=== PATIENT | female | born 2000 | race Caucasian/White ===

== ENCOUNTER → 2022-03-13 09:17 | Outpatient (BNVA) | payer OTHER, SELFPAY | PROVIDERS: Visit Provider Nurse Practitioner Family | DX: G43.009 Migraine without aura, not intractable, without status migrainosus (principal); G24.3 Spasmodic torticollis | CPT/HCPCS: 99212 ==

== ENCOUNTER → 2022-06-12 10:50 | Outpatient (BNVA) | payer OTHER, SELFPAY | PROVIDERS: Visit Provider Nurse Practitioner Family | DX: G43.829 Menstrual migraine, not intractable, without status migrainosus (principal); G24.3 Spasmodic torticollis | CPT/HCPCS: 99212 ==

== ENCOUNTER → 2022-08-27 09:46 | Outpatient (BNVA) | payer OTHER, SELFPAY | PROVIDERS: Visit Provider Nurse Practitioner Family | DX: G43.009 Migraine without aura, not intractable, without status migrainosus (principal); G43.829 Menstrual migraine, not intractable, without status migrainosus; G24.3 Spasmodic torticollis; G47.8 Other sleep disorders | CPT/HCPCS: 99212 ==

== ENCOUNTER 2023-03-02 14:46 | Outpatient (AMB) | payer BC, SELFPAY ==
[2023-03-02 14:48] VITALS: BP 126/84; PULSE 92; O2SAT 98; BMI 23.4
--- NOTE | 2023-03-02 14:48 | MHC.OFFVIS ---
Intake Vital Signs 03/02/23 14:48 Height 5 ft 3 in Weight 132 lb 6 oz BMI 23.4 BP 126/84 Blood Pressure Location Lt brachial Position Sitting Pulse 92 Pulse Source Pulse Oximeter Pulse Oximetry (%) 98 Oxygen Delivery Method Room Air Intake Visit Reasons: 6m f/u headache - unable to confirm Intake Note: Pt presents to the office today for a 6 month follow up for headaches. Pt states her headaches were worse during her 2 week of having COVID and states the sumatriptan didnt help with that while she had covid. She states she believes her headaches are worse leading up to her menstrual cycle and during her cycle. Allergies Penicillins Allergy (Mild, Verified 03/02/23 14:51) Hives Medication List - Last Reconciled 03/02/23 by ALBERTO Morin levonorgestrel-ethinyl estrad 0.1-20 mg-mcg 1 tab PO DAILY onabotulinumtoxinA (Botox) 100 units IM ONCE 12 weeks propranolol 20 mg (2 x 10 mg) PO BID 30 days sumatriptan succinate take 1 tab at onset of headache; if no relief, may repeat 1 tab after at least 2 hrs; max = 2 tabs/24 hrs orally PRN; 30 days HPI HPI Comments History of Present Illness Details 22-yr-old female presents for f/u visit. Pt reports she had Covid-19 infection approx 2 weeks ago. She had prolonged headache, body aches, cough- did not require hospitalization, but felt quite sick. 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 Prior to the Covid infection- she was having 3-4 migraine days per week, which have increased some since. She notes that her initial migraine s/s has changed some from a throbbing posterior neck pain but now a more creep of pain in the cfr-ysxrrymmx-wzzqynja area which makes it more difficult to tell if she is going to have a mild or more severe migraine. She is trying to adjust to her new 4am shift work. However on her days off- she can be prone to oversleep, which can trigger a migraine. Denies constipation but has leg cramps. She wonders if she has vertigo. She can sometimes feel some episodes of turning her head quickly triggering- has a brief sensation of forward/backward motion; if stopped in a car on a hill- will feel like the car is moving back and forth; and once was looking out from a mountain top and felt like her vision was zooming in and out. She denies usual diplopia. With a migraine vision may come in and out. She can have orthostatic lightheadedness w/wo a migraine. She has never had a vestibular eval Her mother has a h/o migraine. PFSH Medical History Depression Syncope Surgical History Hx of wisdom tooth extraction Family History Mother Thyroid disease Social History Household Members: Family Alcohol intake: current Alcohol intake frequency: a few times a month Patient Tobacco Use Status: Never used Tobacco e-Cigarette/Vaping Use: Former Use Current occupational status: employed Review of Systems Const All systems reviewed & are unremarkable except as noted in HPI and below Physical Exam Vital Signs: Last Vital Signs Pulse 92 03/02/23 14:48 BP 126/84 03/02/23 14:48 Pulse Ox 98 03/02/23 14:48 Oxygen Delivery Method Room Air 03/02/23 14:48 BMI result Body Mass Index 23.4 Const General: cooperative and no acute distress Orientation/consciousness: patient oriented x3 HEENT Head: Yes normocephalic Resp Effort & Inspection: normal respiratory effort and able to speak in complete sentences Neuro General: patient oriented x3, gait normal and CN's II-XI intact bilaterally Cognition (Neuro): normal cognition Motor exam (neuro): 5/5 motor strength present throughout Psych Appearance: grossly normal Mental Status: mental status grossly normal Speech and movement: Normal speech and movement present Affect: normal affect Attitude: cooperative Thought process: Normal thought process present Thought content: Normal thought content present Insight: Good insight present (Psych) Judgement: Good judgement present (Psych) Assessment & Plan Assessment & Plan (1) Migraine without aura: Code(s): G43.009 - Migraine without aura, not intractable, without status migrainosus (2) Menstrual migraine: Code(s): G43.829 - Menstrual migraine, not intractable, without status migrainosus (3) Cervical dystonia: Code(s): G24.3 - Spasmodic torticollis Plan For shift work, sleep difficulties, h/o sleep paralysis: Stressed importance of good sleep hygiene. Pt may benefit from reviewing shift work sleep strategies and tips- online resources shared w/ pt. ? For acute migraine treatment: Continue Sumatriptan 50-100mg prn at onset of migraine. Ubrlevy 100mg samples- were effective. ? For migraine prevention: Start Emgality 240mg swc x's 1 then 120mg sc q month. Continue Propranolol to 20mg po bid- would not increase furtehr d/t dizziness s/s. Pt previously tried Magnesium - not helpful, Riboflavin- not helpful, Amitriptyline which did not help and caused mild mood changes.?? Future considerations: Increase Propranolol to 60mg QHS For dizziness- Monitor response to optimizing migraine preventive regimen. If continues to worsens, consider vestibular PT referral. ? For menstrual migraine: Sumatriptan bid- start 1 day prior to onset of menses, may continue x's 3-4 days. ? For cervical dystonia: Botox was approved, however pt has decided not to resume at this time. Monitor clinically. ? f/u in 4 months or sooner prn Medications: New galcanezumab-gnlm (Emgality Pen) 120 mg subcut ONCE 30 days 1 mL 6RF Coding Level of Care Code Est Pt Level 4 (50184) Diagnoses Migraine without aura G43.009 Menstrual migraine G43.829 Cervical dystonia G24.3
== END 2023-03-02 16:10 | disposition home or self-care (01) ==
PROVIDERS: Visit Provider Nurse Practitioner Family
DX: G43.009 Migraine without aura, not intractable, without status migrainosus (principal); G43.829 Menstrual migraine, not intractable, without status migrainosus; G24.3 Spasmodic torticollis
CPT/HCPCS: 99214

== ENCOUNTER → 2023-03-02 14:46 | Outpatient (BNVA) | payer BC, SELFPAY | PROVIDERS: Visit Provider Nurse Practitioner Family ==

== ENCOUNTER 2023-06-04 14:50 | Outpatient (AMB) | payer OTHER, BC, SELFPAY ==
[2023-06-04 14:52] VITALS: BP 126/80; PULSE 100; O2SAT 99; BMI 23.3
--- NOTE | 2023-06-04 14:52 | MHC.OFFVIS ---
Intake Vital Signs 06/04/23 14:52 Height 5 ft 3 in Weight 131 lb 8 oz BMI 23.3 BP 126/80 Blood Pressure Location Rt brachial Position Sitting Pulse 100 Pulse Source Palpation Pulse Oximetry (%) 99 Oxygen Delivery Method Room Air Intake Visit Reasons: 4 mo f/u Headaches-LVM Intake Note: Patient presents for 4 month headaches Information Interpreted: non-clinical & clinical Accompanied by: Self / Same As Patient Allergies Penicillins Allergy (Mild, Verified 06/04/23 14:59) Hives Medication List - Last Reconciled 06/04/23 by ALBERTO Morin levonorgestrel-ethinyl estrad 0.1-20 mg-mcg 1 tab PO DAILY sumatriptan succinate take 1 tab at onset of headache; if no relief, may repeat 1 tab after at least 2 hrs; max = 2 tabs/24 hrs orally PRN; 30 days HPI HPI Comments History of Present Illness Details 23-yr-old female presents for f/u visit. Pt denies any significant interval medical changes. 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 Goes to school on her scheduled days off. She feels her migraine burden is increased d/t continuing to work shift and has recently changed her OCP- which has caused her to have her menses for the last 2 months- this should subside once she adjusts to it. She is now having 3 migraine days per week, an attack may linger for a day or two. Noting lingering migraine more in her right occipital region. Headache and neck stiffness can still be there. She stopped propranolol, it was not very helpful. She did not start Emgality- due to co-pay cost. [facility] Medical History Depression Syncope Surgical History Hx of wisdom tooth extraction Family History Mother Thyroid disease Social History Household Members: Family Alcohol intake: current Alcohol intake frequency: a few times a month Patient Tobacco Use Status: Never used Tobacco e-Cigarette/Vaping Use: Former Use Current occupational status: employed Physical Exam Vital Signs: Last Vital Signs Pulse 100 06/04/23 14:52 BP 126/80 06/04/23 14:52 Pulse Ox 99 06/04/23 14:52 Oxygen Delivery Method Room Air 06/04/23 14:52 BMI result Body Mass Index 23.3 Const General: cooperative and no acute distress Orientation/consciousness: patient oriented x3 Resp Effort & Inspection: normal respiratory effort and able to speak in complete sentences Neuro General: patient oriented x3 Cranial nerves: Yes CN's II-XII intact bilaterally Cognition (Neuro): normal cognition Psych Appearance: grossly normal Mental Status: mental status grossly normal Speech and movement: Normal speech and movement present Affect: normal affect Attitude: cooperative Assessment & Plan Assessment & Plan (1) Migraine without aura: Code(s): G43.009 - Migraine without aura, not intractable, without status migrainosus (2) Menstrual migraine: Code(s): G43.829 - Menstrual migraine, not intractable, without status migrainosus (3) Cervical dystonia: 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 Pt may benefit from reviewing shift work sleep strategies and tips- online resources shared w/ pt. ? For acute migraine treatment: Continue Sumatriptan 50-100mg prn at onset of migraine. Ubrlevy 100mg samples- were effective. ? For migraine prevention: Again start Emgality 240mg swc x's 1 then 120mg sc q month- will try sending to alternate pharmacy and c0-pay assistance info shared w/ pt. Pt stopped Propranolol to 20mg po bid- not effective. Pt previously tried Magnesium - not helpful, Riboflavin- not helpful, Amitriptyline which did not help and caused mild mood changes.?? Future considerations: Increase Propranolol to 60mg QHS ? For dizziness- Monitor response to optimizing migraine preventive regimen. If continues to worsens, consider vestibular PT referral. ? For menstrual migraine: Sumatriptan bid- start 1 day prior to onset of menses, may continue x's 3-4 days. ? For cervical dystonia: Botox was approved, however pt decided not to resume at this time. Monitor clinically. ? f/u in 4 months or sooner prn Medications: New galcanezumab-gnlm (Emgality Pen) 120 mg subcut ONCE 30 days 2 mL 0RF Refilled sumatriptan succinate take 1 tab at onset of headache; if no relief, may repeat 1 tab after at least 2 hrs; max = 2 tabs/24 hrs orally PRN; 30 days 12 tabs 6RF migraine headache Coding Level of Care Code Est Pt Level 4 (57416) Diagnoses Migraine without aura G43.009 Menstrual migraine G43.829 Cervical dystonia G24.3
== END 2023-06-04 15:52 | disposition home or self-care (01) ==
PROVIDERS: Visit Provider Nurse Practitioner Family
DX: G43.009 Migraine without aura, not intractable, without status migrainosus (principal); G43.829 Menstrual migraine, not intractable, without status migrainosus; G24.3 Spasmodic torticollis
CPT/HCPCS: 99214

== ENCOUNTER → 2023-06-04 14:50 | Outpatient (BNVA) | payer BC, SELFPAY | PROVIDERS: Visit Provider Nurse Practitioner Family ==

== ENCOUNTER → 2023-07-05 09:57 | Outpatient (BNVA) | payer BC, OTHER, SELFPAY | PROVIDERS: Visit Provider Nurse Practitioner Family ==

== ENCOUNTER 2024-05-17 10:10 | Outpatient (AMB) | payer BC, OTHER, SELFPAY ==
[2024-05-17 10:20] VITALS: BP 130/80; PULSE 80; O2SAT 98; BMI 23.2
--- NOTE | 2024-05-17 10:20 | MHC.OFFVIS ---
Vital Signs 05/17/24 10:20 Height 5 ft 3 in Weight 131 lb BMI 23.2 BP 130/80 Blood Pressure Location Rt brachial Position Sitting Pulse 80 Pulse Source Pulse Oximeter Pulse Oximetry (%) 98 Intake Visit Reasons: Follow Up Intake Note: Patient presents follow up migraine medication [employer] Medic Required: No Accompanied by: Self / Same As Patient Allergies Penicillins Allergy (Mild, Verified 05/17/24 10:22) Hives Medication List - Last Reconciled 05/17/24 by ALBERTO Morin atogepant (Qulipta) 60 mg PO DAILY 30 days levonorgestrel-ethinyl estrad 0.1-20 mg-mcg 1 tab PO DAILY sumatriptan succinate take 1 tab at onset of headache; if no relief, may repeat 1 tab after at least 2 hrs; max = 2 tabs/24 hrs orally PRN; 30 days HPI Comments Details: History of Present Illness The patient is a 24-year-old female presenting with persistent headaches. Migraines are aggravated during her menstrual cycle, lasting five to six days per month, with additional significant weekly occurrences of migraine attacks. She attempted prophylactic injection, Emgality, but discontinued due to pain. Cervical dystonia previously managed with injections. Menstruation is accompanied by leg cramps radiating to the legs, severe on days two and three of her cycle, with back and hip pain. Sumatriptan provides acute relief for migraines. Headache location: throbbing cervical/occipital Headache Frequency: 5-6 days during menstrual cycle and then weekly Headache Duration: 5 to 6 days during menstrual cycle Headache severity: mild-moderate of severe Headache prodrome symptoms: unspecified Headache Aura: No aura Associated headache symptoms: tension in neck, photophobia, nausea, activity intolerance Headache postdrome symptoms: unspecified Headache alleviating factors: sumatriptan Headache aggravating factors: menstrual cycle Review of Systems - Neurological: Reports increased migraines during menstrual cycle. - Musculoskeletal: Reports leg cramps during the menstrual cycle. - Gastrointestinal: Denies constipation. Headache Lifestyle Factors - Discussed changing control to regulate menstrual cycle. - Exploring dietary triggers and methods to modulate estrogen levels, such as edamame consumption during the cycle. 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 - Experiences limitation in physical activity during migraines due to light sensitivity and pain. Employment - Works at [employer] in a physically demanding [employer] stocking role. - Holds an FMLA due to migraine impeding ability to perform duties during episodes. [facility] Medical History Depression Syncope Surgical History Hx of wisdom tooth extraction Family History Mother Thyroid disease Social History Household Members: Family Alcohol intake: current Alcohol intake frequency: a few times a month Patient Tobacco Use Status: Never used Tobacco e-Cigarette/Vaping Use: Former Use Current occupational status: employed Physical Exam Vital Signs: Last Vital Signs Pulse 80 05/17/24 10:20 BP 130/80 05/17/24 10:20 Pulse Ox 98 05/17/24 10:20 BMI result Body Mass Index 23.2 Const General: cooperative and no acute distress Orientation/consciousness: patient oriented x3 Resp Effort & Inspection: normal respiratory effort and able to speak in complete sentences Neuro General: patient oriented x3 Cranial nerves: Yes CN's II-XII intact bilaterally Cognition (Neuro): normal cognition Psych Appearance: grossly normal Mental Status: mental status grossly normal Speech and movement: Normal speech and movement present Affect: normal affect Attitude: cooperative Assessment & Plan Assessment & Plan (1) Migraine without aura: Code(s): G43.009 - Migraine without aura, not intractable, without status migrainosus Category: Medical (2) Menstrual migraine: Code(s): G43.829 - Menstrual migraine, not intractable, without status migrainosus Category: Medical (3) Cervical dystonia: 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 patient would prefer to pursue a non injection formulation at this point owing to anxiety provoked by previous Emgality injection. thus, we will initiate an order for Qulipta 60 mg daily at bedtime. To mitigate menstrual-related headaches, adjustments to control were recommended, potentially involving consultation with a drop hammer pile driver operator. I advised the inclusion of dietary soy products, like eating 1 cup of edamame daily during the menstrual cycle to counteract estrogen fluctuations. could also consider taking oral iron supplement during menstrual cycle to offset risk for iron deficiency induced migraine attacks. We discussed sumatriptan's continued use for acute relief. Patient was informed and verbally consented to the use of an ambient scribe for clinic note documentation during this visit. Patient Instructions For acute migraine treatment: Continue Sumatriptan 50-100mg prn at onset of migraine. Ubrlevy 100mg samples- were effective. ? For migraine prevention: Discontinue Emgality order- patient did not tolerate, due to injection site pain Start Atogepant (Qulipta) 60mg daily at bedtime. Potential side effects include but are not limited to drowsiness, nausea, constipation, weight loss. Pt previously tried Magnesium - not helpful, Riboflavin- not helpful, Amitriptyline which did not help and caused mild mood changes.??Emgality-not tolerated due to injection site pain. Propranolol 20 mg b.i.d. ineffective after several months. For menstrual migraine: Sumatriptan bid- start 1 day prior to onset of menses, may continue x's 3-4 days. - Consume edamame 1 cup daily during the menstrual cycle. - Aim to increase oral iron intake, especially during the menstrual cycle. - follow-up with drop hammer pile driver operator for control discussion. For dizziness- Monitor response to optimizing migraine preventive regimen. If worsens, consider vestibular PT referral. ? For cervical dystonia: Botox was approved, however pt decided not to resume at this time. Monitor clinically. ? f/u in 6 months or sooner prn Medications: New atogepant (Qulipta) 60 mg PO DAILY 30 days 30 tabs 6RF Discontinued galcanezumab-gnlm (Emgality Pen) Discontinued Reason: Doctor's Order 120 mg subcut ONCE 30 days 2 mL 0RF Scribe Plan - Not visible on output: Reviewed possible medication side effects, including but not limited to drowsiness, dizziness. Coding Level of Care Code Est Pt Level 4 (25349) Diagnoses Migraine without aura G43.009 Menstrual migraine G43.829 Cervical dystonia G24.3
--- OUTSIDE RECORDS SUMMARY | 2024-05-17 11:59 | XMS_ITS | Clinical Summary ---
Author Organization [facility] [address] [facility] l[address] Address [address] [place] [address] Phone Care Team Providers Care Rn Emergency Room Name Role Phone Susanne Todd MD Primary Care Provider Allergies Active Allergy Reactions Criticality Noted Date Comments Penicillins Rash 09/02/2016 Medications drospirenone-eth inyl estradioL (GIANVI,LORYNA,Y AZ) 3-0.02 mg per tablet TAKE 1 TABLET BY MOUTH EVERY DAY 10/06/2023 Active norethindrone-et hinyl estradiol (MICROGESTIN 04/03) 1-20 mg-mcg per tablet Take 1 Tablet by mouth daily for 21 days. Then do not take a pill for one week 03/30/2023 Active propranoloL (INDERAL) 10 mg tablet Take 10 mg by mouth 2 times daily. 10/07/2021 Active SUMAtriptan (IMITREX) 50 mg tablet May repeat dose once after 2 hours, if needed. 11/26/2017 Active Emgality Pen 120 mg/mL injection pen 06/04/2023 Active Active Problems Problem Noted Date Diagnosed Date Anxiety 05/11/2017 Severe episode of recurrent major depressive disorder, without psychotic features 05/11/2017 Migraine without aura 09/04/2016 Overview (02/07/2024): Chronic neck/shoulder pain as likely cause - seen at [facility] 01/08 - recommend PT 05/03/20- [facility] diagnosed by spasmodic torticollis, cervical dystonia, migraines. She was started on sumatriptan prn. Recommended botox injection for the neck. 06/14/20- botox injections performed Acne 09/02/2016 Overview (02/07/2024): Benzaclin 1% -5% topical gel Immunizations Name Administration Dates Next Due DTaP (Infanrix) 6wks to less than 7yo ,2000,1999,08/11,1999 DEhO-NAV-PHM (Pentacel) 2mo to less than 5yo 06/08/2000,1999,1999,06/10 HPV, Quadrivalent 11/07/2013,05/23/2013,11/05/19 13 Hepatitis B Pediatric (Enger ix B; Recombivax HB) to less than 20 yo 1999,1999,1999 IPV Inactivated polio (Ipol) 6wks and older 2003,12/13/2000,1999,06/10 Influenza Quadravalent, MDCK , 0.5ml, preservative free (Flucelvax) 6mo and older 04/21/2021,01/08/2020 Influenza trivalent, 0.5mL, preservative free (Fluarix; FluLaval; Fluzone) ages 6mo and older (Afluria) 3 years and older 11/20/2014,04/03/2014,02/02/2008 MMR, measles mumps and rubel la Live (Priorix; M-M-R II) 12mo and older 02/11/2004,06/08/2000 Meningococcal MCV4P 09/04/2016,11/07/2013 Pneumococcal Conjugate Vacci ne, 7 Valent 05/16/2001,04/27/2000,02/12/2000 Td Tetanus diptheria (Tdvax) 7yo and older 11/25/2018 Tdap Tetanus diptheria acell ular pertussis (Boostrix; Adacel) 7yo and older 09/03/2008 Varicella live (Varivax) 12m o and older 12/29/2011,04/27/2000 Surgical History Surgery Date Site/Laterality Comments OTHER SURGICAL HISTORY PROCEDURE: DENIES PREVIOUS SURGERY Medical History Medical History Date Comments Acne 09/02/2016 DX:Acne; COMMENT : Benzaclin 1% -5% topical gel Asthma 09/02/2016 DX:Asthma; COMME NT: Onset 05/23/13 History of pyelonephritis 09/02/2016 DX:His tory of pyelonephritis; COMMENT: 04/2015 History of pyelonephritis 09/02/2016 DX:His tory of pyelonephritis; COMMENT: 04/2015 Family History Medical History Relation Name Comments Asthma Aunt Maternal No Known Problems Brother 1 No Known Problems Brother 2 Diabetes Father Other: Pancreatitis Father ETOH Diabetes Maternal Grandmother Maligna nt neoplastic dz- age 75, heart disease, Crohn's Thyroid disease Mother Diabetes Paternal Grandmother Breast cancer Neg Hx Cancer of Small Bowel Neg Hx Colon cancer Neg Hx Kidney cancer Neg Hx Ovarian cancer Neg Hx Pancreatic cancer Neg Hx Uterine cancer Neg Hx Relation Name Status Comments Aunt Maternal Alive Brother 1 Alive Brother 2 Alive Father Alive Maternal Grandmother Mother Alive Paternal Grandmother Social History Tobacco Use Types Packs/Day Years Used Date Smoking Tobacco: Never Smokeless Tobacco: Never Tobacco Cessation:Counseling Given: Not Answered Alcohol Use Standard Drinks/Week Comments Yes 0 (1 standard drink = 0.6 oz pur e alcohol) Comments Unknown Sex and Gender Information Value Date Recorded Sex Assigned at Not on file Legal Sex Female 2:11 PM EST Gender Identity Not on file Sexual Orientation Not on file Obstetrics History Last Filed Vital Signs Vital Sign Reading Time Taken Comments Blood Pressure 137/68 03/30/2024 1:12 PM EST Pulse 75 03/30/2024 1:12 PM EST Temperature - - Respiratory Rate 14 03/30/2024 1:12 PM EST Oxygen Saturation - - Inhaled Oxygen Concentration - - Weight 62.9 kg (138 lb 9.6 oz) 03/30/2024 1:12 P M EST Height 159 cm (5' 2.6 ) 03/30/2024 1:12 PM EST Body Mass Index 24.87 03/30/2024 1:12 PM EST Plan of Treatment Upcoming Encounters Date Type Department Care Team (Late st Contact Info) Description 06/09/2024 2:00 PM EDT Office Visit Obstetrics and Gynecology [address] [phone] Josi Corrales, CNM [address] [facility] [place] [id number] Health Maintenance Due Date Last Done Comments Depression Screening 02/11/2022 HIV Screening 02/11/2022 Hepatitis C Screening 02/11/2022 Social Influencers of Health Screening 02/11/2022 COVID-19 Vaccine ( season) 2023 09/09/2020, 07/12/2020 Influenza Vaccine (#1) 2023 , 01/08/2020, 12/29/2018, Additional history exists Cervical Cancer Screening: Pap Smear 01/07/2025 01/07/2022, 01/07/2022, 01/07/2022 Cholesterol Screening (Lipid Panel) 01/07/2025 01/08/2020 DTaP,Tdap,and Td Vaccines (7 - Td or Tdap) 11/25/2028 11/25/2018, 09/03/2008, 2003, Additional history exists Hepatitis B Vaccines Completed 1999, 1999, 1999 HIB Vaccines Completed 06/08/2000, 05/14, 1999, Additional history exists Pneumococcal Vaccine: Pediatrics (0 to 5 Years) and At-Risk Patients (6 to 64 Years) Completed 05/16/2001, 04/27/2000, 02/12/2000 IPV Vaccines Completed 2003, 03/2000, 06/08/2000, Additional history exists MMR Vaccines Completed 02/11/2004, 06/08/2000 Varicella Vaccines Completed 12/29/2011, 04/27/2000 HPV Vaccines Completed 11/07/2013, 05/13, 11/04/2012 Meningococcal ACWY Vaccine Completed 09/04/2016, Gonorrhea/Chlamydia Screening Discontinued 01/07/2022 Hepatitis A Vaccines Aged Out No long er eligible based on patient's age to complete this topic Meningococcal B Vacine Aged Out No lo nger eligible based on patient's age to complete this topic RSV Immunization Patients Under 20 months Aged Out No longer eligible based on patient's age to complete this topic Procedures Procedure Name Priority Date/Time Associated Diagnosis Comments PAP SMEAR Routine 01/07/2022 HM GONORRHEA/CHLAMYDIA SCRREENING Routine 01/07/2022 LIPID PANEL Routine 01/08/2020 from Last 3 Months or Most Recently Relevant to Health Maintenance Results * Hm Gonorrhea/Chlamydia Screening (01/07/2022) HM Gonorrhea/Chla mydia Screening abstracted us Historical Provider MD HEALTH MAINTENANCE Final Result * Pap smear (01/07/2022) 01/07/2022 Narrative HISTORICAL TESTING LAB RESULTING AGENCY - 01/15/2022 7:25 AM EDT [id number] THINPREP PAP, IMAGED: ATYPICAL SQUAMOUS CELLS OF UNDETERMINED SIGNIFICANCE (ASCUS) . PARAKERATOSIS IS PRESENT. ELVIN CORDON , CT(ASCP) (CASE SCREENED 01 12 2022) DERRICK CURIEL M.D. , PATHOLOGIST (CASE ELECTRONICALLY SIGNED 01 14 2022) RESULT OF APTIMA HIGH RISK HPV ASSAY: HIGH RISK HPV: ??NEGATIVE (SEROTYPES 16,18,31,33,35,39,45,51,52,56,58,59,66,68) COMPLETED ON 2022-01-13 ADEQUACY: SATISFACTORY ENDOCERVICAL/TRANSFORMATION ZONE COMPONENT ABSENT. SOURCE: THINPREP PAP HPV IF ASCUS, CERVICAL, IMAGED CLINICAL INFORMATION: HPV IF DIAGNOSIS OF ASCUS. HORMONES, LMP 12/22/21, [[id number]] us Henri Cervantes CNM LAB CYTOLOGY ORDERABLES Final Result HISTORICAL TESTING LAB RESULTING AGENCY * Lipid panel (01/08/2020) LDL/HDL Ratio 2 0 - 4 Triglycerides 126 0 - 150 mg/dL Cholesterol 168 0 - 200 mg/dL HDL 73 >=40 mg/dL LDL Cholesterol 70 0 - 100 mg/dL Blood Venous blood specimen / Unknown us Historical Provider LAB BLOOD ORDERABLES Ruth l Result from Last 3 Months or Most Recently Relevant to Health Maintenance Insurance [employer] [facility] Care Teams Rn Emergency Room Relationship Specialty Start Date End Date Susanne Todd MD [address] [place] [id number] PCP - General Internal Medicine 03/31/21
== END 2024-05-17 11:04 | disposition home or self-care (01) ==
PROVIDERS: PCP Nurse Practitioner Family; Visit Provider Nurse Practitioner Family
DX: G43.009 Migraine without aura, not intractable, without status migrainosus (principal); G43.829 Menstrual migraine, not intractable, without status migrainosus; G24.3 Spasmodic torticollis
CPT/HCPCS: 99214